=== PATIENT | male | born 1990 | race Caucasian/White ===

== ENCOUNTER 2016-07-11 18:53 | Emergency (ER) | payer OTHER ==
[2016-07-11 19:33] VITALS: BP 145/57; PULSE 91; TEMP 97.9; BMI 22.8
[2016-07-11] MEDS ORDERED: PENICILLIN G BENZATHINE 1,200,000 UNIT/2 ML PFS IM ONE (19:55)
[2016-07-11] MEDS ORDERED: IBUPROFEN 400 MG TABLET (FP) PO ONE ×2 (19:55)
[2016-07-11] MEDS ORDERED: PENICILLIN G BENZATHINE 2,400,000 UNIT/4 ML PFS ONE (19:56)
--- NOTE | 2016-07-11 20:00 | PDOC ---
History of Present Illness - General Chief Complaint: Sore Throat Stated Complaint: THROAT PAIN Time Seen by Provider: 07/11/16 19:39 History Source: Patient - History of Present Illness Timing/Duration: reports: this morning Associated Symptoms: reports: sore throat. denies: cough, earache, fever/chills , headache, nasal congestion, nasal drainage Past History - Past Medical History Allergies/Adverse Reactions: Allergies Allergy/AdvReac Type Severity Reaction Status Date / Time No Known Allergies Allergy Verified 07/11/16 19:29 Home Medications: Ambulatory Orders NK [No Known Home Medication] 07/11/16 Other medical history: denies - Immunization History Immunization Up to Date: Yes - Psycho/Social/Smoking Cessation Hx Anxiety: No Suicidal Ideation: No Smoking Status: No Smoking History: Never smoked Number of Cigarettes Smoked Daily: 0 Hx Alcohol Use: No Drug/Substance Use Hx: No Substance Use Type: None Review of Systems - Review of Systems Constitutional: No: Chills, Fever HEENTM: Yes: Throat Pain. No: Ear Pain Respiratory: No: Cough *Physical Exam - Vital Signs Last Vital Signs Temp Pulse Resp BP Pulse Ox 97.9 F 91 H 18 145/57 100 07/11/16 19:29 07/11/16 19:29 07/11/16 19:29 07/11/16 19:29 07/11/16 19:29 - Physical Exam General Appearance: Yes: Appropriately Dressed. No: Apparent Distress HEENT: positive: Normal Voice, TMs Normal, Other (b.l tonsillar enlargement). negative: Scleral Icterus (R), Scleral Icterus (L), Tonsillar Exudate Medical Decision Making - Medical Decision Making 07/11/16 19:56 25-year-old male, history of recurrent strep tonsillitis here with sore throat since this a.m. States symptoms similar to his strep. Denies ear pain, fever or chills. Patient well-appearing and stable with enlarged tonsils bilaterally with no exudates or uvular deviation. Given history, will treat empirically and discharge with pain control as needed 07/11/16 20:23 *DC/Admit/Observation/Transfer Diagnosis at time of Disposition: Sore throat - Discharge Dispostion Disposition: HOME Condition at time of disposition: Good - Patient Instructions Printed Discharge Instructions: Strep Throat
== END 2016-07-11 20:04 | disposition home or self-care (01) ==
LOC: JERFT 18:53 → JER 18:53 → JERFT 20:04
DX: J02.9 Acute pharyngitis, unspecified (principal)
CPT/HCPCS: 87070; 87077; 87430; 96372; 99281-25

== ENCOUNTER 2016-09-01 07:43 | Emergency (ER) | payer OTHER ==
[2016-09-01 07:49] VITALS: BP 124/84; PULSE 91; TEMP 97.5; BMI 22.6
--- NOTE | 2016-09-01 08:33 | PDOC ---
History of Present Illness - General Chief Complaint: Pain Stated Complaint: SORE THROAT Time Seen by Provider: 09/01/16 08:26 History Source: Patient - History of Present Illness Timing/Duration: reports: other Associated Symptoms: denies: cough, earache, fever/chills, nasal congestion, nasal drainage, sore throat Past History - Past Medical History Allergies/Adverse Reactions: Allergies Allergy/AdvReac Type Severity Reaction Status Date / Time No Known Allergies Allergy Verified 09/01/16 07:46 Home Medications: Ambulatory Orders NK [No Known Home Medication] 07/11/16 Other medical history: none - Immunization History Immunization Up to Date: Yes - Psycho/Social/Smoking Cessation Hx Anxiety: No Suicidal Ideation: No Smoking Status: No Smoking History: Never smoked Have you smoked in the past 12 months: No Number of Cigarettes Smoked Daily: 0 Information on smoking cessation initiated: No Hx Alcohol Use: No Drug/Substance Use Hx: No Substance Use Type: None Review of Systems - Review of Systems Constitutional: Yes: Chills. No: Fever HEENTM: No: Ear Pain, Throat Pain Respiratory: No: Cough *Physical Exam - Vital Signs Last Vital Signs Temp Pulse Resp BP Pulse Ox 97.5 F L 91 H 18 124/84 99 09/01/16 07:47 09/01/16 07:47 09/01/16 07:47 09/01/16 07:47 09/01/16 07:47 - Physical Exam General Appearance: Yes: Appropriately Dressed. No: Apparent Distress HEENT: positive: Normal ENT Inspection, Normal Voice, TMs Normal, Pharynx Normal. negative: Scleral Icterus (R), Scleral Icterus (L) Neck: positive: Supple Respiratory/Chest: negative: Respiratory Distress Integumentary: positive: Dry, Warm Neurologic: positive: Fully Oriented, Alert, Normal Mood/Affect Medical Decision Making - Medical Decision Making 09/01/16 08:30 25-year-old male, endorses h/o recurrent strep throat here with sensation of mucus stuck in his throat 2 weeks and here to be ruled out for strep. Patient does deny any throat pain, dysphagia, ear pain, fever, chills or cough. Well- appearing and stable with unremarkable exam. Doubt strep, but will test patient per request 09/01/16 09:34 Rapid strep neg. Will dc w/ ENT f/u as needed *DC/Admit/Observation/Transfer Diagnosis at time of Disposition: URI (upper respiratory infection) Qualifiers: URI type: unspecified viral URI Qualified Code(s): J06.9 - Acute upper respiratory infection, unspecified; B97.89 - Other viral agents as the cause of diseases classified elsewhere - Discharge Dispostion Disposition: HOME Condition at time of disposition: Good - Patient Instructions Additional Instructions: Please take mucinex and drink plenty of fluids for mucus build-up. Follow-up with your ENT as needed
== END 2016-09-01 09:38 | disposition home or self-care (01) ==
LOC: JERFT 07:43
DX: J06.9 Acute upper respiratory infection, unspecified (principal); B97.89 Other viral agents as the cause of diseases classified elsewhere
CPT/HCPCS: 87070; 87430; 99281-25

== ENCOUNTER 2017-08-16 10:11 | Emergency (ER) | payer OTHER ==
[2017-08-16 10:20] VITALS: BP 123/74; PULSE 83; TEMP 98.1; BMI 22.4
[2017-08-16] MEDS ORDERED: RANITIDINE HCL 150 MG TABLET (FP) PO ONE (11:13)
[2017-08-16] MEDS ORDERED: RANITIDINE HCL 150 MG TABLET (FP) ONE (11:14)
[2017-08-16] MEDS ORDERED: LORATADINE 10 MG TABLET ONE (11:14)
--- NOTE | 2017-08-16 11:21 | PDOC ---
History of Present Illness - General Chief Complaint: Shortness of Breath Stated Complaint: SOB&CHEST PAIN Time Seen by Provider: 08/16/17 10:43 History Source: Patient Exam Limitations: No Limitations - History of Present Illness Initial Comments: 08/16/17 11:14 Patient is a 26-year-old male, denies any significant medical history presents with sudden onset of palpitations while driving. Patient was just seen in urgent care for hives which presented yesterday. Took Benadryl, 2 tabs last evening hives remained was given prednisone 60 minutes by mouth 1 at urgent care then developed palpitations. Patient denies any palpitations upon arrival, EKG was performed in triage normal sinus rhythm. She denies any chest pain or shortness of breath, no difficulty swallowing. Allergies: No known allergies Medications: [None] Family History: Non-contributory Social History: Denies smoking, alcohol use, or IVDU Vital signs on arrival are [notable for pulse of 70.] Review of Systems GENERAL/CONSTITUTIONAL: [No fever or chills. No weakness. No weight change.] HEAD, EYES, EARS, NOSE AND THROAT: [No change in vision. No ear pain or discharge. No sore throat. ] CARDIOVASCULAR: [No chest pain or shortness of breath. Applications] RESPIRATORY: [No cough, wheezing, or hemoptysis.] GASTROINTESTINAL: [No nausea, vomiting, diarrhea or constipation. No rectal bleeding.] GENITOURINARY: [No dysuria, frequency, or change in urination.] MUSCULOSKELETAL: [No joint or muscle swelling or pain. No neck or back pain.] SKIN AND BREASTS: [No rash or easy bruising.] NEUROLOGIC: [No headache, vertigo, loss of consciousness, or loss of sensation.] PSYCHIATRIC: [No depression or anxiety.] ENDOCRINE: [No increased thirst. No abnormal weight change.] HEMATOLOGIC/LYMPHATIC: [No anemia, easy bleeding, or history of blood clots.] ALLERGIC/IMMUNOLOGIC: [No hives or skin allergy. No latex allergy.] Physical Exam: GENERAL: [The patient is awake, alert, and fully oriented, in no acute distress. ] EYES: [Pupils equal, round and reactive to light, extraocular movements intact, sclera anicteric, conjunctiva clear.] ENT: [Ears normal, nares patent, oropharynx clear without exudates. Moist mucous membranes. No uvula deviation] NECK: [Normal range of motion, supple without lymphadenopathy, JVD, or masses. No stridor] LUNGS: [Breath sounds equal, clear to auscultation bilaterally. No wheezes, and no crackles.] HEART: [Regular rate and rhythm, normal S1 and S2 without murmur, rub or gallop. ] ABDOMEN: [Soft, nontender, normoactive bowel sounds. No guarding, no rebound. No masses. No bruising or abrasions] MUSCULOSKELETAL: [Normal range of motion, no edema. No clubbing or cyanosis. No cords, erythema, or tenderness. No CVA Tenderness with fist.] NEUROLOGICAL: [Cranial nerves II through XII grossly intact. Normal speech, normal gait.] SKIN: [Warm, Dry, normal turgor, no rashes or lesions noted. Generalized wheals] 08/16/17 11:22 Past History - Past Medical History Allergies/Adverse Reactions: Allergies Allergy/AdvReac Type Severity Reaction Status Date / Time No Known Allergies Allergy Verified 08/16/17 10:14 Home Medications: Ambulatory Orders Loratadine [Claritin] 10 mg PO DAILY #30 tablet 08/16/17 Ranitidine HCl [Zantac] 150 mg PO DAILY #30 tablet 08/16/17 COPD: No Other medical history: DENIES. - Immunization History Immunization Up to Date: Yes - Suicide/Smoking/Psychosocial Hx Smoking Status: No Smoking History: Never smoked Have you smoked in the past 12 months: No Number of Cigarettes Smoked Daily: 0 Hx Alcohol Use: No Drug/Substance Use Hx: No Substance Use Type: None *Physical Exam - Vital Signs Last Vital Signs Temp Pulse Resp BP Pulse Ox 98.1 F 83 19 123/74 98 08/16/17 10:14 08/16/17 10:14 08/16/17 10:14 08/16/17 10:14 08/16/17 10:14 Medical Decision Making - Medical Decision Making 08/16/17 11:21 A/P: Patient with palpitations prior to arrival after taking prednisone, most likely medication induced EKG was performed upon arrival into [facility]. Twelve-lead EKG was performed and reviewed by me. There is normal sinus rhythm with a normal rate. The axis is normal. The intervals are normal. There are no ST or T wave abnormalities. Impression: Normal twelve-lead EKG Patient denies any palpitations or chest pain upon arrival, no difficulty swallowing. I will give patient Claritin and Zantac, patient has an appointment and dermatology at 1:30 today. 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 Patient is well-appearing, no respiratory distress, no chest pain. Will DC patient home, to continue Zantac and Claritin and to follow-up with dermatology today 08/16/17 11:22 *DC/Admit/Observation/Transfer Diagnosis at time of Disposition: Palpitations Allergic reaction Qualifiers: Encounter type: initial encounter Qualified Code(s): T78.40XA - Allergy, unspecified, initial encounter - Discharge Dispostion Disposition: HOME Condition at time of disposition: Stable Admit: No - Prescriptions Prescriptions: Loratadine [Claritin] 10 mg PO DAILY #30 tablet Ranitidine HCl [Zantac] 150 mg PO DAILY #30 tablet - Referrals Referrals: Morena Mckeon MD [Primary Care Provider] - - Patient Instructions Printed Discharge Instructions: DI for General Allergic Reactions Additional Instructions: If any chest pain, shortness of breath, difficulty swallowing, or any other concerns return to ER. Please take medication as prescribed and follow up with dermatology today 1:30 - Post Discharge Activity
--- NOTE | 2017-08-17 09:43 | EKG ---
Test Reason : Blood Pressure : / mmHG Vent. Rate : 070 BPM Atrial Rate : 070 BPM P-R Int : 134 ms QRS Dur : 084 ms QT Int : 382 ms P-R-T Axes : 025 010 009 degrees QTc Int : 412 ms NORMAL SINUS RHYTHM WITH SINUS ARRHYTHMIA NORMAL ECG NO PREVIOUS ECGS AVAILABLE Confirmed by KERON HALEY MD ([id number]) on 08/17/2017 9:42:39 AM Referred By: Confirmed By:KERON HALEY MD
== END 2017-08-16 11:27 | disposition home or self-care (01) ==
LOC: JERFT 10:11
DX: R00.2 Palpitations (principal)
CPT/HCPCS: 93005; 93010; 99281-25

== ENCOUNTER 2018-10-02 19:40 | Emergency (ER) | payer OTHER ==
[2018-10-02 19:47] VITALS: BP 128/73; PULSE 79; TEMP 98; BMI 21.6
--- NOTE | 2018-10-02 19:51 | PDOC ---
History of Present Illness - General History Source: Patient Exam Limitations: No Limitations - History of Present Illness Initial Comments: 10/02/18 20:14 The patient is a 28 year old male, with a significant past medical history of strep throat (got tonsils removed due to it) who presents to the emergency department with 3 days of sore throat. The patient states he went to his PCPs office, Dr. Mckeon, however the office was closed. 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 The patient states he had a subjective fever last night and this morning. The patient denies chest pain, shortness of breath, headache or dizziness. The patient denies chills, nausea, vomit, diarrhea or constipation. The patient denies dysuria, frequency, urgency or hematuria. PAST MEDICAL HISTORY: no significant history PAST SURGICAL HISTORY: tonsillectomy FAMILY HISTORY: no pertinent history SOCIAL HISTORY: Pt lives with family and is employed. MEDICATIONS: reviewed ALLERGIES: As per nursing notes <Justina Portillo - Last Filed: 10/02/18 20:13> - General History Source: Patient Exam Limitations: No Limitations - History of Present Illness Initial Comments: A portion of this note was documented by scribe services under my direction. I have reviewed the details of the note, within reason, and agree with the documentation with the following case summary and management plan written by me. Patient treated in the ED. Nursing notes are reviewed and incorporated into the medical decision-making. Vital signs reviewed. Assessment and plan: This is a 28-year-old male who comes in complaining of sore throat. 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 A rapid strep was sent that was negative Patient's exam was more consistent with a viral etiology. Patient was reassured and discharged home 10/02/18 20:19 <Nick Voss I - Last Filed: 10/02/18 20:21> - General Chief Complaint: Sore Throat Stated Complaint: SORE THROAT Time Seen by Provider: 10/02/18 19:51 Past History <Justina Portillo - Last Filed: 10/02/18 20:13> - Past Medical History COPD: No Other medical history: Pt denies - Immunization History Immunization Up to Date: Yes - Suicide/Smoking/Psychosocial Hx Smoking Status: No Smoking History: Never smoked Have you smoked in the past 12 months: No Number of Cigarettes Smoked Daily: 0 Information on smoking cessation initiated: No Hx Alcohol Use: No Drug/Substance Use Hx: No Substance Use Type: None <Nick Voss I - Last Filed: 10/02/18 20:21> - Past Medical History Allergies/Adverse Reactions: Allergies Allergy/AdvReac Type Severity Reaction Status Date / Time No Known Allergies Allergy Verified 10/02/18 19:42 Home Medications: Ambulatory Orders NK [No Known Home Medication] 10/02/18 Review of Systems - Review of Systems Able to Perform ROS?: Yes Comments:: 10/02/18 20:15 General: (+) subjective fevers. No chills, no weakness, no weight loss HEENT: (+) sore throat. No change in vision. No ear pain CardioVascular: No chest pain or shortness of breath Respiratory:No cough, or wheezing. Gastrointestinal: no nausea, vomiting, diarrhea or constipation, No rectal bleeding Genitourinary: No dysuria, hematuria, or frequency Musculoskeletal: No joint or muscle pain or swelling Neurologic: No headache, vertigo, dizziness or loss of consciousness Psychiatric: nor depression Skin: No rashes or easy bruising Endocrine: no increased thirst or abnormal weight change Allergic: no skin or latex allergy All other systems reviewed and normal <Justina Portillo - Last Filed: 10/02/18 20:13> *Physical Exam - Vital Signs Last Vital Signs Temp Pulse Resp BP Pulse Ox 98.0 F 79 18 128/73 100 10/02/18 19:42 10/02/18 19:42 10/02/18 19:42 10/02/18 19:42 10/02/18 19:42 - Physical Exam Comments: 10/02/18 20:15 GENERAL: The patient is awake, alert, and fully oriented, in no acute distress. HEAD: Normal with no signs of trauma. EYES: Pupils equal, round and reactive to light, extraocular movements intact, sclera anicteric, conjunctiva clear. THROAT: (+) moderate erythema. (+) little exudates. (+) submandibular lymphadenopathy EXTREMITIES: Normal range of motion, no edema. NEUROLOGICAL: Normal speech, normal gait. PSYCH: Normal mood, normal affect. SKIN: Warm, Dry, normal turgor, no rashes or lesions noted. <Justina Portillo - Last Filed: 10/02/18 20:13> - Vital Signs Last Vital Signs Temp Pulse Resp BP Pulse Ox 98.0 F 79 18 128/73 100 10/02/18 19:42 10/02/18 19:42 10/02/18 19:42 10/02/18 19:42 10/02/18 19:42 <Nick Voss I - Last Filed: 10/02/18 20:21> *DC/Admit/Observation/Transfer - Attestations Scribe Attestion: 10/02/18 20:15 Documentation prepared by Justina Portillo, acting as medical reception for Nick Voss MD <Justina Portillo - Last Filed: 10/02/18 20:13> - Discharge Dispostion Decision to Admit order: No <Nick Voss I - Last Filed: 10/02/18 20:21> Diagnosis at time of Disposition: Acute viral pharyngitis - Discharge Dispostion Disposition: HOME - Referrals Referrals: Morena Mckeon MD [Primary Care Provider] - - Patient Instructions Additional Instructions: Tylenol or Motrin as needed for pain or fevers. Your rapid strep screen was negative however it is not 100% and there is on rare occasion false negatives. So the swab will also be cultured and we will contact you if it grows anything that needs treatment Return to the emergency department immediately with ANY new, persistent or worsening symptoms. Continue any medications as previously prescribed by your physician. You should follow up with your primary doctor as soon as possible regarding today's emergency department visit. . Please make sure your doctor reviews the results of your emergency evaluation. Thank you for coming to the Emergency Department today for your care. It was a pleasure to see you today. Please note that your evaluation is INCOMPLETE until you follow-up with your doctor. - Post Discharge Activity
== END 2018-10-02 20:25 | disposition home or self-care (01) ==
LOC: FER 19:40 → SUPCPDRO 19:40 → FER 20:25
DX: J02.8 Acute pharyngitis due to other specified organisms (principal); B97.89 Other viral agents as the cause of diseases classified elsewhere
CPT/HCPCS: 87070; 87880; 99282-25

== ENCOUNTER 2020-10-31 12:53 | Emergency (ER) | payer OTHER ==
[2020-10-31 13:06] VITALS: BP 109/67; PULSE 87; TEMP 97.9; BMI 24.1
[2020-10-31] MEDS ORDERED: DIPHTH,PERTUSS(ACELL),TET 0.5 ML DISP.SYRIN IM ONE ×2 (13:43→13:48)
== END 2020-10-31 13:54 | disposition home or self-care (01) ==
LOC: JERFT 12:53 → JER 12:53 → JERFT 13:54
PROC: 0HQGXZZ Repair Left Hand Skin, External Approach (ICD-10-PCS; principal; 2020-10-31)
PROC: 3E0234Z Introduction of Serum, Toxoid and Vaccine into Muscle, Percutaneous Approach (ICD-10-PCS; 2020-10-31)
DX: S61.412A Laceration without foreign body of left hand, initial encounter (principal)
CPT/HCPCS: 90471; 90715; 99284-25